=== PATIENT | male | born 1950 | race Caucasian/White ===

== ENCOUNTER 2021-12-14 08:30 | Inpatient (IN) ==
[2021-12-14 09:58] LABS: Basophils % 0.2 %; Eosinophils # 0.3 K/mcL (0.0-0.6); Eosinophils % 2.4 %; Hematocrit 40.3 % (37.5-50.1); Hemoglobin 12.6 g/dL (12.9-16.9); Immature Granulocytes % 0.8 % (0-4); Lymphocytes % 8.1 %; Mean Corpuscular HGB Conc 31.3 g/dL (31.6-35.5); Mean Corpuscular Hemoglobin 28.7 pg (28.0-33.3); Mean Corpuscular Volume 91.8 fL (83.0-100.0); Mean Platelet Volume 10.7 fL (9.4-12.4); Monocytes # 0.8 K/mcL (0.0-1.3); Monocytes % 6.5 %; Neutrophils # 9.9 K/mcL (1.6-8.9); Platelet Count 386 K/mcL (140-400); Red Blood Count 4.39 M/mcL (4.19-5.50); Red Cell Distribution Width 14.3 % (11.5-14.5); White Blood Count 12.1 K/mcL (4.3-11.1)
[2021-12-14 10:14] LABS: BUN/Creatinine Ratio 29 (6-26); Blood Urea Nitrogen 28 mg/dL (8-23); Calcium 9.8 mg/dL (8.6-10.3); Carbon Dioxide 26 mEq/L (23-29); Chloride 104 mEq/L (98-107); Glucose 221 mg/dL (70-105); Osmolality,Calculated 294 (280-300); Potassium 4.9 mEq/L (3.5-5.1); Sodium 136 mEq/L (136-145); eGFR For African Americans > 60 (> 60); eGFR For Non-African Americans > 60 (> 60)
[2021-12-14] MEDS ORDERED: Iopamidol - 370 500 ML MLS IVP ONE (10:15)
[2021-12-14] MEDS ORDERED: Piperacillin/Tazobactam 3.375 GM in 0.9 % Sodium Chloride Mini Bag 100 ML IVPB ONE (10:20)
[2021-12-14] MEDS ORDERED: MetroNIDAZOLE 500 MG/100 ML 500 MG/100 ML BAG IVPB ONE (10:20)
[2021-12-14 10:27] LABS: Influenza A PCR Negative (Negative); Influenza B PCR Negative (Negative); Resp. Syncytial Virus PCR Negative (Negative)
[2021-12-14 10:52] LABS: SARS-CoV-2 by PCR (In House) Negative (Negative)
[2021-12-14] MEDS ORDERED: Naloxone 0.4 MG/ML INJ IVP PRN (12:39)
[2021-12-14] MEDS ORDERED: *HR* Dextrose 50 % in Water (Syg) 50 ML SYRINGE IVP PRN (12:46)
[2021-12-14] MEDS ORDERED: Dextrose Gel 15 GM/37.5 ML TUBE PO PRN ×2 (12:46)
[2021-12-14] MEDS ORDERED: D5% in Water 1,000 ML IVC PRN (12:46)
[2021-12-14 13:46] LABS: Estimated Average Glucose 160 mg/dl; Hemoglobin A1C 7.2 %
[2021-12-14] MEDS: Piperacillin/Tazobactam 3.375 GM in 0.9 % Sodium Chloride Mini Bag 100 ML IVPB SCH ×2 (17:05→23:20)
[2021-12-14] MEDS: Insulin LISPRO 300 UNITS/3 ML VIAL SUBQ SCH ×2 (17:05→21:17)
[2021-12-15 02:32] LABS: Hemoglobin 11.7 g/dL (12.9-16.9); Mean Corpuscular HGB Conc 31.6 g/dL (31.6-35.5); Mean Corpuscular Hemoglobin 28.4 pg (28.0-33.3); Mean Corpuscular Volume 89.8 fL (83.0-100.0); Mean Platelet Volume 10.6 fL (9.4-12.4); Platelet Count 430 K/mcL (140-400); Red Blood Count 4.12 M/mcL (4.19-5.50); Red Cell Distribution Width 14.2 % (11.5-14.5); White Blood Count 12.3 K/mcL (4.3-11.1)
[2021-12-15 02:52] LABS: BUN/Creatinine Ratio 25 (6-26); Blood Urea Nitrogen 25 mg/dL (8-23); Calcium 8.9 mg/dL (8.6-10.3); Carbon Dioxide 26 mEq/L (23-29); Chloride 105 mEq/L (98-107); Glucose 157 mg/dL (70-105); Magnesium 1.3 mg/dL (1.6-2.6); Osmolality,Calculated 292 (280-300); Phosphorous 2.7 mg/dL (2.7-4.5); Potassium 4.6 mEq/L (3.5-5.1); Sodium 137 mEq/L (136-145); eGFR For African Americans > 60 (> 60); eGFR For Non-African Americans > 60 (> 60)
[2021-12-15] MEDS ORDERED: Vancomycin 1,250 MG/262.5 ML IV.SOLN IVPB SCH (08:00)
[2021-12-15] MEDS ORDERED: Magnesium Sulfate 1 GM/102 ML PIGGYBACK IVPB ONE (08:02)
[2021-12-15] MEDS: Insulin LISPRO 300 UNITS/3 ML VIAL SUBQ SCH ×4 (08:34→19:37)
[2021-12-15] MEDS: lisinopriL 5 MG TABLET PO SCH (08:36)
[2021-12-15] MEDS: Levothyroxine 25 MCG TABLET PO SCH (08:37)
[2021-12-15] MEDS: Aspirin Enteric Coated 81 MG Tablet PO SCH (08:37)
[2021-12-15] MEDS: Piperacillin/Tazobactam 3.375 GM in 0.9 % Sodium Chloride Mini Bag 100 ML IVPB SCH ×3 (08:37→23:05)
[2021-12-15] MEDS: levETIRAcetam 250 MG TABLET PO SCH ×2 (08:41→19:36)
[2021-12-15] MEDS: Vancomycin 1,250 MG/262.5 ML IV.SOLN IVPB SCH ×2 (09:03→19:36)
[2021-12-15] MEDS ORDERED: Acetaminophen 325 MG TABLET PO PRN (19:41)
[2021-12-16 03:27] LABS: Hemoglobin 11.1 g/dL (12.9-16.9); Mean Corpuscular HGB Conc 31.7 g/dL (31.6-35.5); Mean Corpuscular Hemoglobin 28.2 pg (28.0-33.3); Mean Corpuscular Volume 89.1 fL (83.0-100.0); Mean Platelet Volume 10.4 fL (9.4-12.4); Platelet Count 418 K/mcL (140-400); Red Blood Count 3.93 M/mcL (4.19-5.50); White Blood Count 9.4 K/mcL (4.3-11.1)
[2021-12-16 03:37] LABS: BUN/Creatinine Ratio 20 (6-26); Blood Urea Nitrogen 20 mg/dL (8-23); Calcium 8.4 mg/dL (8.6-10.3); Carbon Dioxide 26 mEq/L (23-29); Chloride 104 mEq/L (98-107); Glucose 122 mg/dL (70-105); Osmolality,Calculated 286 (280-300); Potassium 4.6 mEq/L (3.5-5.1); Sodium 136 mEq/L (136-145); eGFR For African Americans > 60 (> 60); eGFR For Non-African Americans > 60 (> 60)
[2021-12-16] MEDS: Piperacillin/Tazobactam 3.375 GM in 0.9 % Sodium Chloride Mini Bag 100 ML IVPB SCH ×2 (07:55→16:09)
[2021-12-16] MEDS: levETIRAcetam 250 MG TABLET PO SCH ×2 (07:55→20:42)
[2021-12-16] MEDS: Aspirin Enteric Coated 81 MG Tablet PO SCH (07:55)
[2021-12-16] MEDS: Levothyroxine 25 MCG TABLET PO SCH (07:55)
[2021-12-16] MEDS: lisinopriL 5 MG TABLET PO SCH (07:55)
[2021-12-16] MEDS: Insulin LISPRO 300 UNITS/3 ML VIAL SUBQ SCH ×4 (08:31→20:41)
[2021-12-16] MEDS ORDERED: *HR* Propofol 200 MG/20 ML VIAL IVP ONE (11:14)
[2021-12-16] MEDS ORDERED: Lidocaine -MPF 2% 2 ML VIAL ONE (11:14)
[2021-12-16] MEDS ORDERED: Ondansetron 4 MG/2 ML VIAL ONE (11:14)
[2021-12-16] MEDS ORDERED: *HR* FentaNYL (PF) 100 MCG/2 ML VIAL ONE (11:14)
[2021-12-16] MEDS ORDERED: Lidocaine/EPI 1:200k 2% PF 20 ML VIAL ONE (11:14)
[2021-12-16] MEDS ORDERED: *HR* Succinylcholine 200 MG/10 ML VIAL IVP ONE (11:14)
[2021-12-16] MEDS ORDERED: EPHEDrine 50 MG/ML VIAL ONE (11:25)
[2021-12-16] MEDS ORDERED: Acetaminophen IV 1,000 MG/100 ML BAG IVPB PRN (12:05)
[2021-12-17] MEDS: Piperacillin/Tazobactam 3.375 GM in 0.9 % Sodium Chloride Mini Bag 100 ML IVPB SCH ×3 (01:11→17:00)
[2021-12-17 07:25] LABS: Hematocrit 36.5 % (37.5-50.1); Hemoglobin 11.7 g/dL (12.9-16.9); Mean Corpuscular HGB Conc 32.1 g/dL (31.6-35.5); Mean Corpuscular Hemoglobin 28.7 pg (28.0-33.3); Mean Corpuscular Volume 89.5 fL (83.0-100.0); Mean Platelet Volume 10.4 fL (9.4-12.4); Platelet Count 507 K/mcL (140-400); Red Blood Count 4.08 M/mcL (4.19-5.50); Red Cell Distribution Width 13.8 % (11.5-14.5); White Blood Count 12.4 K/mcL (4.3-11.1)
[2021-12-17 07:59] LABS: BUN/Creatinine Ratio 20 (6-26); Blood Urea Nitrogen 23 mg/dL (8-23); Carbon Dioxide 27 mEq/L (23-29); Chloride 100 mEq/L (98-107); Glucose 249 mg/dL (70-105); Osmolality,Calculated 290 (280-300); Potassium 4.5 mEq/L (3.5-5.1); Sodium 134 mEq/L (136-145); eGFR For African Americans > 60 (> 60); eGFR For Non-African Americans > 60 (> 60)
[2021-12-17] MEDS: Levothyroxine 25 MCG TABLET PO SCH (09:13)
[2021-12-17] MEDS: Insulin LISPRO 300 UNITS/3 ML VIAL SUBQ SCH ×4 (09:13→21:12)
[2021-12-17] MEDS: lisinopriL 5 MG TABLET PO SCH (09:13)
[2021-12-17] MEDS: levETIRAcetam 250 MG TABLET PO SCH ×2 (09:14→20:58)
[2021-12-17] MEDS: Aspirin Enteric Coated 81 MG Tablet PO SCH (09:14)
[2021-12-18] MEDS: Piperacillin/Tazobactam 3.375 GM in 0.9 % Sodium Chloride Mini Bag 100 ML IVPB SCH ×2 (00:37→08:56)
[2021-12-18 02:35] LABS: Hematocrit 33.9 % (37.5-50.1); Hemoglobin 10.8 g/dL (12.9-16.9); Mean Corpuscular HGB Conc 31.9 g/dL (31.6-35.5); Mean Corpuscular Hemoglobin 28.3 pg (28.0-33.3); Mean Platelet Volume 10.8 fL (9.4-12.4); Platelet Count 423 K/mcL (140-400); Red Blood Count 3.81 M/mcL (4.19-5.50); Red Cell Distribution Width 13.9 % (11.5-14.5)
[2021-12-18 02:54] LABS: BUN/Creatinine Ratio 23 (6-26); Blood Urea Nitrogen 26 mg/dL (8-23); Calcium 8.3 mg/dL (8.6-10.3); Carbon Dioxide 25 mEq/L (23-29); Chloride 102 mEq/L (98-107); Glucose 229 mg/dL (70-105); Osmolality,Calculated 288 (280-300); Potassium 4.5 mEq/L (3.5-5.1); Sodium 133 mEq/L (136-145); eGFR For African Americans > 60 (> 60); eGFR For Non-African Americans > 60 (> 60)
[2021-12-18] MEDS: Insulin LISPRO 300 UNITS/3 ML VIAL SUBQ SCH ×2 (07:52→12:16)
[2021-12-18] MEDS: levETIRAcetam 250 MG TABLET PO SCH (08:58)
[2021-12-18] MEDS: Aspirin Enteric Coated 81 MG Tablet PO SCH (08:58)
[2021-12-18] MEDS: lisinopriL 5 MG TABLET PO SCH (08:59)
[2021-12-18] MEDS: Levothyroxine 25 MCG TABLET PO SCH (08:59)
[2021-12-18 10:48] VITALS: BP 125/71; PULSE 76; TEMP 98.2; O2SAT 96
[2021-12-20 15:48] LABS: Quantiferon Mitogen minus NIL 9.05 IU/mL; Quantiferon Nil 0.95 IU/mL; Quantiferon TB2 minus NIL 0.11 IU/mL (< 0.35)
== END 2021-12-18 13:19 | disposition home or self-care (01) | DRG 871 ==
LOC: 2ANU 08:30 → EMEROOARM 08:30 → 2NENU 12:06 → SUATTDRO 12-15 12:32
PROVIDERS: ADMIT Internal Medicine; ATTEND Internal Medicine